=== PATIENT | female | born 1975 | race Caucasian/White ===

== ENCOUNTER 2023-07-29 14:02 | Emergency (ER) | payer OTHER, SELFPAY ==
[2023-07-29 14:33] VITALS: BP 210/110; BP 212/122; PULSE 93; RESP 16; TEMP 36.6; O2SAT 98; BMI 37.8
--- NOTE | 2023-07-29 14:55 | CT_ITS ---
[address] [address] Patient Name: ALLEGRA MCCAIN MRN: [id number] date: 1975 Sex: F Assigned Patient Location: ER Current Patient Location: ER Accession/Order Number: [id number] Exam Date: 07/29/2023 16:19 Report Date: 07/29/2023 16:51 At the request of: PEGGY BERGER Procedure: CT abdomen pelvis wo con EXAM: CT abdomen pelvis wo con HISTORY: flank pain COMPARISON: 07/23/2015 TECHNIQUE: Axial CT imaging was performed through the abdomen and pelvis without intravenous contrast. Multiplanar reformats were performed. Dose reduction techniques were achieved by using automated exposure control and/or adjustment of mA and/or kV according to patient size and/or use of iterative reconstruction technique. FINDINGS: Lung bases: Lung bases are clear. No pleural effusion. GI upper: Unremarkable. Liver: Normal size and contour. Gallbladder: Cholecystectomy. Biliary system: No intra or extrahepatic biliary ductal dilatation. Spleen: Normal size. Pancreas: Unremarkable. Adrenal glands: Normal adrenal glands. Kidneys/ureters: Normal contours. No hydronephrosis. No nephrolithiasis or ureterolithiasis. Vessels: No aneurysm. Lymph Nodes: Prominent lymph nodes, predominantly seen in the left upper abdomen, measuring up to 1.2 cm, nonspecific and may represent mesenteric adenitis. Small bowel: No wall thickening or dilatation. Colon: No wall thickening or dilatation. Appendix: Appendix is identified with normal appearance. Peritoneal cavity: No free fluid or pneumoperitoneum. Lower : Unremarkable. Bones: No acute bony abnormality. Soft tissues: No acute finding. Colonic diverticulosis without evidence of acute diverticulitis. Additional findings: None. CT/CT abdomen pelvis wo con IMPRESSION: No renal stone. Prominent lymph nodes, predominantly seen in the left upper abdomen, measuring up to 1.2 cm, nonspecific and may represent mesenteric adenitis. Electronically authenticated by: MATEO NAM Date: 07/29/2023 16:51
[2023-07-29 15:09] LABS: Bilirubin Urine NEGATIVE (NEGATIVE); Blood Urine NEGATIVE (NEGATIVE); Clarity Urine CLEAR (CLEAR); Color Urine LT. YELLOW (YELLOW); Glucose Urine UA NEGATIVE (NEGATIVE); Ketones Urine NEGATIVE (NEGATIVE); Leukocyte Esterase Urine NEGATIVE (NEGATIVE); Nitrite Urine NEGATIVE (NEGATIVE); Protein Urine NEGATIVE (NEG/TRACE); Urobilinogen Urine 0.2 EU/dL (0.2-1.0); pH Urine 5.5 (5.0-9.0)
[2023-07-29 15:10] LABS: Urine Microscopic Indicated NO
[2023-07-29] MEDS: 0.9 % SODIUM CHLORIDE 1,000 ML 999 ML IV (15:41)
[2023-07-29] MEDS: ONDANSETRON PF 4 MG/2 ML VIAL IV (15:43)
[2023-07-29] MEDS: KETOROLAC TROMETHAMINE 30 MG/ML VIAL IM (15:43)
[2023-07-29 15:49] LABS: Basophils Percent Auto 0.5 % (0.2-2.0); Eosinophils Absolute Auto 0.2 10^3/uL (0.0-0.7); Eosinophils Percent Auto 3.8 % (0.9-7.0); Hematocrit 30.4 % (36.0-48.0); Hemoglobin 8.9 g/dL (12.0-16.0); Immature Granulocytes Abs Auto 0.02 10^3/uL (0.00-0.03); Immature Granulocytes Pct Auto 0.3 % (0.0-0.5); Lymphocytes Absolute Auto 1.5 10^3/uL (1.2-3.8); Lymphocytes Percent Auto 26.2 % (20.5-60.0); Mean Corpuscular HGB Conc 29.3 g/dL (29.9-35.2); Mean Corpuscular Hemoglobin 21.3 pg (26.7-34.0); Mean Corpuscular Volume 72.7 fL (81.0-99.0); Mean Platelet Volume 9.4 fL (9.5-13.5); Monocytes Absolute Auto 0.4 10^3/uL (0.3-0.8); Monocytes Percent Auto 7.5 % (1.7-12.0); Neutrophils Absolute Auto 3.5 10^3/uL (1.4-6.5); Neutrophils Percent Auto 61.7 % (43.0-75.0); Platelet Count 272 10^3/uL (150-450); Red Blood Count 4.18 10^6/uL (4.20-5.40); Red Cell Distribution Width 15.5 % (11.0-15.0); White Blood Count 5.7 10^3/uL (4.0-11.0)
[2023-07-29 16:04] LABS: Alanine Aminotransferase 22 U/L (14-59); Albumin Globulin Ratio 1.1; Albumin Level 3.6 g/dL (3.4-5.0); Alkaline Phosphatase 84 U/L (46-116); Anion Gap 14.3; Aspartate Amino Transferase 41 U/L (15-37); BUN Creatinine Ratio 19.3; Bilirubin Total 0.5 mg/dL (0.2-1.0); Carbon Dioxide 25.4 mmol/L (21.0-32.0); Chloride 105 mmol/L (98-107); Estimated GFR (African America >60 (>=60); Estimated GFR (Non-African Ame >60 (>=60); Globulin 3.4 g/dL; Glucose 97 mg/dL (74-106); Potassium 4.7 mmol/L (3.5-5.1); Sodium 140 mmol/L (136-145)
--- NOTE | 2023-07-29 16:34 | ED_ITS ---
Documented by User: Beverley Suárez 07/29/23 17:42 HPI - Abdominal Pain General Chief Complaint: Abdominal Pain Stated Complaint: RIGHT SIDE PAIN Time Seen by Provider: 07/29/23 14:54 Source: patient Mode of arrival: walk-in Limitations: no limitations History of Present Illness HPI narrative: 38-year-old female presents here with chief complaint of generalized right lower quadrant and flank pain. She states the pain began several days ago. She states she has had mild amount of hematuria. Denies any known history of kidney stones. She states she has had mild diarrhea for several days. Abdomen soft nontender to palpation.Patient denies any fever or chills, states she has had a occasional nausea. Related Data Home Medications Medication Instructions Recorded Confirmed loratadine 10 mg tablet (Claritin) 10 mg PO DAILY 07/29/23 07/29/23 propranolol 160 mg capsule,24 mg PO 07/29/23 hr,extended release simvastatin 10 mg tablet mg 07/29/23 Previous Rx's Medication Instructions Recorded multivitamin with iron (Daily 1 tab PO DAILY #30 tabs 07/29/23 Vites/Iron tablet) Allergies Allergy/AdvReac Type Severity Reaction Status Date / Time cefadroxil [From [facility]] Allergy Severe Hives Verified 07/29/23 14:33 cefuroxime [From Ceftin] Allergy Severe Hives Verified 07/29/23 14:33 Penicillins Allergy Severe Hives Verified 07/29/23 14:33 Review of Systems ROS Narrative All Systems are negative except as noted/marked. PFSH PFSH Social History Smoking status: Never smoker Exam Narrative Exam Narrative: All Systems are negative except as noted/marked.All systems reviewed and otherwise negative Nurses note and vital signs reviewed and patient is not hypoxic. General: The patient appears well and in no apparent distress. Patient is resting comfortably on cart. Skin: Warm, dry, no pallor noted. There is no rash noted. Head: Normocephalic, atraumatic Eye: Normal conjunctiva, no drainage, EOMI. PERRL Ears, Nose, Mouth, and Throat: oral mucosa is moist. Nares patent. Mouth without vesicles. Ear canals patent. Tm's without Erythema Cardiovascular: Regular Rate and Rhythm Respiratory: Patient is in no distress, no accessory muscle use, lungs are clear to auscultation, no wheezing, rales or rhonchi Back: non-tender, no CVA tenderness bilaterally to percussion. GI: Normal bowel sounds, no tenderness to palpation, no masses appreciated. No rebound, guarding, or rigidity noted. : Rectal exam is normal no dark tarry stool, occult stool negative Musculoskeletal: The patient has no evidence of calf tenderness, no pitting edema, symmetrical pulses noted bilaterally Neurological: A&O x4, normal speech Psychiatric: Cooperative Constitutional Vital Signs, click to edit/add: Last Vital Signs Temp 98 F 07/29/23 14:33 Pulse 93 H 07/29/23 14:33 Resp 16 07/29/23 14:33 BP 158/84 H 07/29/23 17:51 Pulse Ox 98 07/29/23 14:33 O2 Del Method Room Air 07/29/23 14:33 Course Vital Signs Vital signs: Vital Signs Temperature 98 F 07/29/23 14:33 Pulse Rate 93 H 07/29/23 14:33 Respiratory Rate 16 07/29/23 14:33 Blood Pressure 210/110 H 07/29/23 14:33 Pulse Oximetry 98 07/29/23 14:33 Oxygen Delivery Method Room Air 07/29/23 14:33 Temperature 98 F 07/29/23 14:33 Pulse Rate 93 H 07/29/23 14:33 Respiratory Rate 16 07/29/23 14:33 Blood Pressure 158/84 H 07/29/23 17:51 Pulse Oximetry 98 07/29/23 14:33 Oxygen Delivery Method Room Air 07/29/23 14:33 MDM - Abdominal Pain Differential Diagnosis Differential diagnosis: Likely abdominal pain, acute appendicitis and calculus of kidney Medical Records Attestation: I reviewed the patient's medical records. Medical records narrative: Female present to the emergency room chief complaint of flank pain. Initial examination patient was thought to maybe have a kidney stone. CT scan of the abdomen without contrast shows no acute stone but showed mesenteric adenitis. CBC BMP were reviewed. Patient has a iron deficiency anemia per results. Hemoglobin is 8.9. Patient denies known history of anemia in the past. She denies denies any dizziness. Or shortness of breath. Patient has been medicated with toradol and morphine for abdominal pain. Elevated blood pressure here denies any blurred vision double vision or headache. Believe this is due to her discomfort. Patient also been medicated here with hydralazine. Patient instructed to follow-up with primary care physician and start taking [id number] iron pills. Patient be given a prescription for vitamin with iron. Patient verbalized understanding agrees with plan of care Lab Data Attestation: I reviewed the patient's lab results. Labs: Lab Results 07/29/23 07/29/23 07/29/23 Range/Units 14:44 15:16 15:43 WBC 5.7 (4.0-11.0) 10^3/uL RBC 4.18 L (4.20-5.40) 10^6/uL Hgb 8.9 L (12.0-16.0) g/dL Hct 30.4 L (36.0-48.0) % MCV 72.7 L (81.0-99.0) fL MCH 21.3 L (26.7-34.0) pg MCHC 29.3 L (29.9-35.2) g/dL RDW 15.5 H (11.0-15.0) % Plt Count 272 (150-450) 10^3/uL MPV 9.4 L (9.5-13.5) fL Neut % (Auto) 61.7 (43.0-75.0) % Lymph % (Auto) 26.2 (20.5-60.0) % [place] % (Auto) 7.5 (1.7-12.0) % Eos % (Auto) 3.8 (0.9-7.0) % Baso % (Auto) 0.5 (0.2-2.0) % Neut # (Auto) 3.5 (1.4-6.5) 10^3/uL Lymph # (Auto) 1.5 (1.2-3.8) 10^3/uL [place] # (Auto) 0.4 (0.3-0.8) 10^3/uL Eos # (Auto) 0.2 (0.0-0.7) 10^3/uL Baso # (Auto) 0.0 (0.0-0.1) 10^3/uL Abs Immat Gran (auto) 0.02 (0.00-0.03) 10^3/uL Imm/Tot Granulo (auto) 0.3 (0.0-0.5) % Sodium 140 (136-145) mmol/L Potassium 4.7 (3.5-5.1) mmol/L Chloride 105 (98-107) mmol/L Carbon Dioxide 25.4 (21.0-32.0) mmol/L Anion Gap 14.3 BUN 11.0 (7.0-18.0) mg/dL Creatinine 0.57 (0.55-1.02) mg/dL Est GFR ( Amer) >60 (>=60) Est GFR (Non-Af Amer) >60 (>=60) BUN/Creatinine Ratio 19.3 Glucose 97 (74-106) mg/dL Calcium 9.0 (8.5-10.1) mg/dL Total Bilirubin 0.5 (0.2-1.0) mg/dL AST 41 H (15-37) U/L ALT 22 (14-59) U/L Alkaline Phosphatase 84 (46-116) U/L Total Protein 7.0 (6.4-8.2) g/dL Albumin 3.6 (3.4-5.0) g/dL Globulin 3.4 g/dL Albumin/Globulin Ratio 1.1 Urine Color Lt. yellow (YELLOW) Urine Clarity Clear (CLEAR) Urine pH 5.5 (5.0-9.0) Ur Specific [place] 1.010 (1.005-1.025) Urine Protein Negative (NEG/TRACE) mg/dL Urine Glucose (UA) Negative (NEGATIVE) mg/dL Urine Ketones Negative (NEGATIVE) mg/dL Urine Occult Blood Negative (NEGATIVE) Urine Nitrite Negative (NEGATIVE) Urine Bilirubin Negative (NEGATIVE) Urine Urobilinogen 0.2 (0.2-1.0) EU/dL Ur Leukocyte Esterase Negative (NEGATIVE) Stool Occult Blood 07/29/23 Range/Units 17:22 WBC (4.0-11.0) 10^3/uL RBC (4.20-5.40) 10^6/uL Hgb (12.0-16.0) g/dL Hct (36.0-48.0) % MCV (81.0-99.0) fL MCH (26.7-34.0) pg MCHC (29.9-35.2) g/dL RDW (11.0-15.0) % Plt Count (150-450) 10^3/uL MPV (9.5-13.5) fL Neut % (Auto) (43.0-75.0) % Lymph % (Auto) (20.5-60.0) % [place] % (Auto) (1.7-12.0) % Eos % (Auto) (0.9-7.0) % Baso % (Auto) (0.2-2.0) % Neut # (Auto) (1.4-6.5) 10^3/uL Lymph # (Auto) (1.2-3.8) 10^3/uL [place] # (Auto) (0.3-0.8) 10^3/uL Eos # (Auto) (0.0-0.7) 10^3/uL Baso # (Auto) (0.0-0.1) 10^3/uL Abs Immat Gran (auto) (0.00-0.03) 10^3/uL Imm/Tot Granulo (auto) (0.0-0.5) % Sodium (136-145) mmol/L Potassium (3.5-5.1) mmol/L Chloride (98-107) mmol/L Carbon Dioxide (21.0-32.0) mmol/L Anion Gap BUN (7.0-18.0) mg/dL Creatinine (0.55-1.02) mg/dL Est GFR ( Amer) (>=60) Est GFR (Non-Af Amer) (>=60) BUN/Creatinine Ratio Glucose (74-106) mg/dL Calcium (8.5-10.1) mg/dL Total Bilirubin (0.2-1.0) mg/dL AST (15-37) U/L ALT (14-59) U/L Alkaline Phosphatase (46-116) U/L Total Protein (6.4-8.2) g/dL Albumin (3.4-5.0) g/dL Globulin g/dL Albumin/Globulin Ratio Urine Color (YELLOW) Urine Clarity (CLEAR) Urine pH (5.0-9.0) Ur Specific [place] (1.005-1.025) Urine Protein (NEG/TRACE) mg/dL Urine Glucose (UA) (NEGATIVE) mg/dL Urine Ketones (NEGATIVE) mg/dL Urine Occult Blood (NEGATIVE) Urine Nitrite (NEGATIVE) Urine Bilirubin (NEGATIVE) Urine Urobilinogen (0.2-1.0) EU/dL Ur Leukocyte Esterase (NEGATIVE) Stool Occult Blood Negative Imaging Data CT scan - abdomen: Attestation: I have reviewed the pertinent imaging results. Radiologist's impression: ITS Impressions Abdomen/Pelvis CT 07/29/23 14:55 IMPRESSION: No renal stone. Prominent lymph nodes, predominantly seen in the left upper abdomen, measuring up to 1.2 cm, nonspecific and may represent mesenteric adenitis. Electronically authenticated by: MATEO NAM Date: 07/29/2023 16:51 Discharge Plan Discharge Chief Complaint: Abdominal Pain Clinical Impression: Anemia, Abdominal pain, Mesenteric adenitis Patient Disposition: Home, Self-Care Time of Disposition Decision: 17:23 Condition: Good Prescriptions / Home Meds: New multivitamin with iron [Daily Vites/Iron] Tablet 1 tab PO DAILY Qty: 30 0RF No Action propranolol 160 mg capsule,extended release 24 hr PO simvastatin 10 mg tablet loratadine [Claritin] 10 mg tablet 10 mg PO DAILY Instructions: Abdominal Pain (ED), Anemia (ED), Adenitis (ED) Referrals: Tyshawn Pabon [Primary Care Provider] - 1 week Discharge Date/Time: 07/29/23 18:02 Stand Alone Forms: Portal Instructions Documented by User: Abraham Guzman MD 07/29/23 20:54 HPI - Abdominal Pain General Chief Complaint: Abdominal Pain Stated Complaint: RIGHT SIDE PAIN Time Seen by Provider: 07/29/23 14:54 Related Data Home Medications Medication Instructions Recorded Confirmed loratadine 10 mg tablet (Claritin) 10 mg PO DAILY 07/29/23 07/29/23 propranolol 160 mg capsule,24 mg PO 07/29/23 hr,extended release simvastatin 10 mg tablet mg 07/29/23 Previous Rx's Medication Instructions Recorded multivitamin with iron (Daily 1 tab PO DAILY #30 tabs 07/29/23 Vites/Iron tablet) Allergies Allergy/AdvReac Type Severity Reaction Status Date / Time cefadroxil [From [facility]] Allergy Severe Hives Verified 07/29/23 14:33 cefuroxime [From Ceftin] Allergy Severe Hives Verified 07/29/23 14:33 Penicillins Allergy Severe Hives Verified 07/29/23 14:33 PFSH PFSH Social History Smoking status: Never smoker Exam Constitutional Vital Signs, click to edit/add: Last Vital Signs Temp 98 F 07/29/23 14:33 Pulse 93 H 07/29/23 14:33 Resp 16 07/29/23 14:33 BP 158/84 H 07/29/23 17:51 Pulse Ox 98 07/29/23 14:33 O2 Del Method Room Air 07/29/23 14:33 Course Vital Signs Vital signs: Vital Signs Temperature 98 F 07/29/23 14:33 Pulse Rate 93 H 07/29/23 14:33 Respiratory Rate 16 07/29/23 14:33 Blood Pressure 210/110 H 07/29/23 14:33 Pulse Oximetry 98 07/29/23 14:33 Oxygen Delivery Method Room Air 07/29/23 14:33 Temperature 98 F 07/29/23 14:33 Pulse Rate 93 H 07/29/23 14:33 Respiratory Rate 16 07/29/23 14:33 Blood Pressure 158/84 H 07/29/23 17:51 Pulse Oximetry 98 07/29/23 14:33 Oxygen Delivery Method Room Air 07/29/23 14:33 MDM - Abdominal Pain Medical Records Medical records narrative: Female present to the emergency room chief complaint of flank pain. Initial examination patient was thought to maybe have a kidney stone. CT scan of the abdomen without contrast shows no acute stone but showed mesenteric adenitis. CBC BMP were reviewed. Patient has a iron deficiency anemia per results. Hemoglobin is 8.9. Patient denies known history of anemia in the past. She denies denies any dizziness. Or shortness of breath. Patient has been medicated with toradol and morphine for abdominal pain. Elevated blood pressure here denies any blurred vision double vision or headache. Believe this is due to her discomfort. Patient also been medicated here with hydralazine. Patient instructed to follow-up with primary care physician and start taking [id number] iron pills. Patient be given a prescription for vitamin with iron. Patient verbalized understanding agrees with plan of care I, Dr Guzman, have reviewed the above progress note and course of action in the ER; agree with the above. I have personally seen and evaluated this patient, gone over history and physical, and discussed disposition and treatment plan with the patient. Lab Data Labs: Lab Results 07/29/23 07/29/23 07/29/23 Range/Units 14:44 15:16 15:43 WBC 5.7 (4.0-11.0) 10^3/uL RBC 4.18 L (4.20-5.40) 10^6/uL Hgb 8.9 L (12.0-16.0) g/dL Hct 30.4 L (36.0-48.0) % MCV 72.7 L (81.0-99.0) fL MCH 21.3 L (26.7-34.0) pg MCHC 29.3 L (29.9-35.2) g/dL RDW 15.5 H (11.0-15.0) % Plt Count 272 (150-450) 10^3/uL MPV 9.4 L (9.5-13.5) fL Neut % (Auto) 61.7 (43.0-75.0) % Lymph % (Auto) 26.2 (20.5-60.0) % [place] % (Auto) 7.5 (1.7-12.0) % Eos % (Auto) 3.8 (0.9-7.0) % Baso % (Auto) 0.5 (0.2-2.0) % Neut # (Auto) 3.5 (1.4-6.5) 10^3/uL Lymph # (Auto) 1.5 (1.2-3.8) 10^3/uL [place] # (Auto) 0.4 (0.3-0.8) 10^3/uL Eos # (Auto) 0.2 (0.0-0.7) 10^3/uL Baso # (Auto) 0.0 (0.0-0.1) 10^3/uL Abs Immat Gran (auto) 0.02 (0.00-0.03) 10^3/uL Imm/Tot Granulo (auto) 0.3 (0.0-0.5) % Sodium 140 (136-145) mmol/L Potassium 4.7 (3.5-5.1) mmol/L Chloride 105 (98-107) mmol/L Carbon Dioxide 25.4 (21.0-32.0) mmol/L Anion Gap 14.3 BUN 11.0 (7.0-18.0) mg/dL Creatinine 0.57 (0.55-1.02) mg/dL Est GFR ( Amer) >60 (>=60) Est GFR (Non-Af Amer) >60 (>=60) BUN/Creatinine Ratio 19.3 Glucose 97 (74-106) mg/dL Calcium 9.0 (8.5-10.1) mg/dL Total Bilirubin 0.5 (0.2-1.0) mg/dL AST 41 H (15-37) U/L ALT 22 (14-59) U/L Alkaline Phosphatase 84 (46-116) U/L Total Protein 7.0 (6.4-8.2) g/dL Albumin 3.6 (3.4-5.0) g/dL Globulin 3.4 g/dL Albumin/Globulin Ratio 1.1 Urine Color Lt. yellow (YELLOW) Urine Clarity Clear (CLEAR) Urine pH 5.5 (5.0-9.0) Ur Specific [place] 1.010 (1.005-1.025) Urine Protein Negative (NEG/TRACE) mg/dL Urine Glucose (UA) Negative (NEGATIVE) mg/dL Urine Ketones Negative (NEGATIVE) mg/dL Urine Occult Blood Negative (NEGATIVE) Urine Nitrite Negative (NEGATIVE) Urine Bilirubin Negative (NEGATIVE) Urine Urobilinogen 0.2 (0.2-1.0) EU/dL Ur Leukocyte Esterase Negative (NEGATIVE) Stool Occult Blood 07/29/23 Range/Units 17:22 WBC (4.0-11.0) 10^3/uL RBC (4.20-5.40) 10^6/uL Hgb (12.0-16.0) g/dL Hct (36.0-48.0) % MCV (81.0-99.0) fL MCH (26.7-34.0) pg MCHC (29.9-35.2) g/dL RDW (11.0-15.0) % Plt Count (150-450) 10^3/uL MPV (9.5-13.5) fL Neut % (Auto) (43.0-75.0) % Lymph % (Auto) (20.5-60.0) % [place] % (Auto) (1.7-12.0) % Eos % (Auto) (0.9-7.0) % Baso % (Auto) (0.2-2.0) % Neut # (Auto) (1.4-6.5) 10^3/uL Lymph # (Auto) (1.2-3.8) 10^3/uL [place] # (Auto) (0.3-0.8) 10^3/uL Eos # (Auto) (0.0-0.7) 10^3/uL Baso # (Auto) (0.0-0.1) 10^3/uL Abs Immat Gran (auto) (0.00-0.03) 10^3/uL Imm/Tot Granulo (auto) (0.0-0.5) % Sodium (136-145) mmol/L Potassium (3.5-5.1) mmol/L Chloride (98-107) mmol/L Carbon Dioxide (21.0-32.0) mmol/L Anion Gap BUN (7.0-18.0) mg/dL Creatinine (0.55-1.02) mg/dL Est GFR ( Amer) (>=60) Est GFR (Non-Af Amer) (>=60) BUN/Creatinine Ratio Glucose (74-106) mg/dL Calcium (8.5-10.1) mg/dL Total Bilirubin (0.2-1.0) mg/dL AST (15-37) U/L ALT (14-59) U/L Alkaline Phosphatase (46-116) U/L Total Protein (6.4-8.2) g/dL Albumin (3.4-5.0) g/dL Globulin g/dL Albumin/Globulin Ratio Urine Color (YELLOW) Urine Clarity (CLEAR) Urine pH (5.0-9.0) Ur Specific [place] (1.005-1.025) Urine Protein (NEG/TRACE) mg/dL Urine Glucose (UA) (NEGATIVE) mg/dL Urine Ketones (NEGATIVE) mg/dL Urine Occult Blood (NEGATIVE) Urine Nitrite (NEGATIVE) Urine Bilirubin (NEGATIVE) Urine Urobilinogen (0.2-1.0) EU/dL Ur Leukocyte Esterase (NEGATIVE) Stool Occult Blood Negative Imaging Data CT scan - abdomen: Radiologist's impression: ITS Impressions Abdomen/Pelvis CT 07/29/23 14:55
[2023-07-29] MEDS: MORPHINE SULFATE 2 MG/ML SYRINGE IV (17:04)
[2023-07-29 17:33] LABS: Occult Blood Negative
[2023-07-29] MEDS: HYDRALAZINE HCL 20 MG/ML VIAL 5 MG IVP (17:39)
[2023-07-29 17:51] VITALS: BP 158/84
== END 2023-07-29 18:02 | disposition home or self-care (01) ==
PROVIDERS: Physician Assistant; Emergency Provider Emergency Medicine; PCP Physician Assistant
DX: R10.9 Unspecified abdominal pain (principal); D64.9 Anemia, unspecified; I88.0 Nonspecific mesenteric lymphadenitis; Z79.899 Other long term (current) drug therapy
CPT/HCPCS: 36415; 74176; 80053; 81001; 81003; 85025; 96361; 96372; 96374; 96375; 99285; G0328